=== PATIENT | male | born 1985 | race Caucasian/White ===

== ENCOUNTER 2017-11-05 12:37 | Emergency (ER) | payer OTHER ==
[2017-11-05 12:49] VITALS: BP 114/76; PULSE 92; TEMP 100.8; O2SAT 100
[2017-11-05] MEDS ORDERED: Naproxen 550 mg Tab PO ONE (13:38)
[2017-11-05] MEDS: Naproxen 550 mg Tab PO STA (13:38)
--- NOTE | 2017-11-05 14:08 | C.PDOC ---
History Of Present Illness 32 y/o male presents to the ED c/o body aches ,a productive cough with yellow sputum, fever, and chills for 2 days. The patient states that he is positive for sick contact from a co worker at work and he is diagnosed with influenza. The patient denies dizziness, headaches, dizziness, and diarrhea. Time Seen by Provider: 11/05/17 12:47 Chief Complaint (Nursing): Flu-like Symptoms History Per: Patient History/Exam Limitations: no limitations Onset/Duration Of Symptoms: Days Current Symptoms Are (Timing): Still Present Associated Symptoms: Fever, Cough, Sputum. denies: Chills, Diarrhea Additional History Per: Patient Past Medical History Reviewed: Historical Data, Nursing Documentation, Vital Signs Vital Signs: Last Vital Signs Temp 100.8 F H 11/05/17 12:45 Pulse 92 H 11/05/17 12:45 Resp 20 11/05/17 14:38 BP 114/76 11/05/17 12:45 Pulse Ox 100 11/05/17 16:47 Surgical History: No Surg Hx Family History: States: No Known Family Hx - Social History Hx Alcohol Use: No Hx Substance Use: No - Immunization History Hx Tetanus Toxoid Vaccination: No Hx Influenza Vaccination: No Hx Pneumococcal Vaccination: No Review Of Systems Except As Marked, All Systems Reviewed And Found Negative. Constitutional: Positive for: Fever, Chills, Other (body aches ) Cardiovascular: Negative for: Chest Pain Respiratory: Positive for: Cough (productive with yellow sputum ). Negative for: Shortness of Breath Gastrointestinal: Negative for: Vomiting, Diarrhea Skin: Negative for: Rash Physical Exam - Physical Exam Appears: Non-toxic, No Acute Distress, Other (comfortable ) Skin: Warm, Dry Head: Atraumatic, Normacephalic Eye(s): bilateral: Normal Inspection Oral Mucosa: Moist Throat: Normal, No Erythema Neck: Supple Chest: Symmetrical Cardiovascular: Rhythm Regular Respiratory: Normal Breath Sounds, No Rales, No Rhonchi Back: Normal Inspection, No CVA Tenderness, No Vertebral Tenderness Extremity: Capillary Refill (2<sec. ) Neurological/Psych: Oriented x3 Gait: Steady ED Course And Treatment O2 Sat by Pulse Oximetry: 100 (RA) Progress Note: The patient was given naproxen for the fever. The patient no longer has any body aches , chills, and productive cough. Upon reassesment, the patient is aferbile and comfortable. The patient is advised to have a follow up with his PCP for further evaluation. Disposition Counseled Patient/Family Regarding: Studies Performed, Diagnosis, Need For Followup, Rx Given - Disposition Referrals: [facility] [Outside] Disposition: HOME/ ROUTINE Disposition Time: 14:15 Condition: STABLE Additional Instructions: FOLLOW UP WITH YOUR DOCTOR/CLINIC IN 1-2 DAYS USE MEDICATIONS DIRECTED DRINK PLENTY OF FLUIDS, GET REST, DRINK PLENTY OF FLUIDS RETURN TO ER IF SYMPTOMS WORSEN Prescriptions: Benzonatate [Tessalon Perles] 100 mg PO BID PRN #15 sgl PRN Reason: Cough Naproxen 375 mg PO BID PRN #20 tablet PRN Reason: pain Oseltamivir Phosphate [Tamiflu] 75 mg PO BID #10 capsule Instructions: Viral Syndrome (ED) Forms: [facility] (Setswana), Work Excuse Print Language: GUAMANIAN - POA Present On Arrival: None - Clinical Impression Clinical Impression: Influenza-like illness, Viral syndrome - Scribe Statement The provider has reviewed the documentation as recorded by the Scribe Ginger Guzman
[2017-11-05 14:39] VITALS: RESP 20
== END 2017-11-05 14:38 | disposition home or self-care (01) ==
LOC: C.ER 12:37
DX: J11.1 Influenza due to unidentified influenza virus with other respiratory manifestations (principal)